=== PATIENT | female | born 1980 | race Two or more races ===

== ENCOUNTER → 2017-05-18 | Emergency (ER) | payer OTHER | END | disposition left against medical advice (07) | LOC: ER 21:16 | DX: Z53.20 Procedure and treatment not carried out because of patient's decision for unspecified reasons (principal) ==

== ENCOUNTER → 2017-06-16 | Outpatient (CLI) | payer OTHER | END | disposition home or self-care (01) | LOC: PPH VACUNA 10:51 | DX: Z23 Encounter for immunization (principal) ==

== ENCOUNTER 2021-02-09 23:14 | Outpatient (CLI) | payer OTHER | END 2021-02-10 08:26 | disposition home or self-care (01) | LOC: OBS/DEL 23:14 | PROVIDERS: ATTEND Obstetrics & Gynecology Maternal & Fetal Medicine | DX: O36.8130 Decreased fetal movements, third trimester, not applicable or unspecified (principal); Z3A.31 31 weeks gestation of pregnancy ==

== ENCOUNTER 2021-02-12 10:50 | Outpatient (CLI) | payer OTHER | END 2021-02-12 11:33 | disposition home or self-care (01) | LOC: NST 10:50 | PROVIDERS: ATTEND Obstetrics & Gynecology Maternal & Fetal Medicine | DX: Z34.83 Encounter for supervision of other normal pregnancy, third trimester (principal) ==

== ENCOUNTER 2021-03-30 12:15 | Inpatient (IN) | payer OTHER ==
[~2021-03-30] VITALS: Ht 160 cm; Wt 2.7 kg
[2021-04-12] MEDS ORDERED: PRENATAL + DHA1 EAC1 (16:19)
[2021-04-12] MEDS ORDERED: SYNTHROID112 MCG PO (16:20)
== END 2021-04-15 12:21 | disposition home or self-care (01) | DRG 788 ==
LOC: SURH 04-05 12:15 → LDR 04-12 15:22 → SURG-SUITE 04-12 22:23
PROVIDERS: ADMIT Obstetrics & Gynecology Maternal & Fetal Medicine; ATTEND Obstetrics & Gynecology Maternal & Fetal Medicine
PROC: 3E033VJ Introduction of Other Hormone into Peripheral Vein, Percutaneous Approach (ICD-10-PCS; 2021-04-12)
PROC: 3E0P7VZ Introduction of Hormone into Female Reproductive, Via Natural or Artificial Opening (ICD-10-PCS; 2021-04-12)
PROC: 4A1HXCZ Monitoring of Products of Conception, Cardiac Rate, External Approach (ICD-10-PCS; 2021-04-12)
PROC: 10D00Z1 Extraction of Products of Conception, Low, Open Approach (ICD-10-PCS; principal; 2021-04-12 20:00)
DX: O76 Abnormality in fetal heart rate and rhythm complicating labor and delivery (principal); O69.81X0 Labor and delivery complicated by cord around neck, without compression, not applicable or unspecified; O82 Encounter for cesarean delivery without indication; O48.0 Post-term pregnancy; Z3A.40 40 weeks gestation of pregnancy; Z37.0 Single live birth; Z20.822 Contact with and (suspected) exposure to COVID-19

== ENCOUNTER 2021-04-05 07:38 | Outpatient (CLI) | payer OTHER | END 2021-04-05 08:40 | disposition home or self-care (01) | LOC: NST 07:38 | PROVIDERS: ATTEND Obstetrics & Gynecology | DX: Z34.83 Encounter for supervision of other normal pregnancy, third trimester (principal) ==

== ENCOUNTER 2021-04-09 08:01 | Outpatient (CLI) | payer OTHER | END 2021-04-09 08:28 | disposition home or self-care (01) | LOC: NST 08:01 | PROVIDERS: ATTEND Obstetrics & Gynecology Maternal & Fetal Medicine | DX: Z34.83 Encounter for supervision of other normal pregnancy, third trimester (principal) ==

== ENCOUNTER 2021-04-12 07:37 | Outpatient (CLI) | payer OTHER ==
[2021-04-12] MEDS ORDERED: PRENATAL + DHA1 EAC1 (16:19)
[2021-04-12] MEDS ORDERED: SYNTHROID112 MCG PO (16:20)
== END 2021-04-12 08:24 | disposition home or self-care (01) ==
LOC: NST 07:37
PROVIDERS: ATTEND Obstetrics & Gynecology
DX: Z34.83 Encounter for supervision of other normal pregnancy, third trimester (principal)